=== PATIENT | male | born 1995 | race Two or more races ===

== ENCOUNTER 2018-11-26 10:30 | Emergency (ER) | payer SELFPAY ==
[~2018-11-26] VITALS: Ht 170.2 cm; Wt 68.0 kg
--- NOTE | 2018-11-26 10:40 | Emergency Room Report ---
History of Present Illness General Chief Complaint: Behavioral Complaint Source: EMS, Law Enforcement Present Illness HPI This patient was brought in [place] [employer] and [place] [employer]. The patient was running dangerously through traffic and then was acting bizarre and refusing to calm down. He is acting intoxicated and having hallucinations per EMS and [place] [employer]. The patient himself is yelling and screaming that he is having surveillance and recording and that he knows "what is going on." He is unable to articulate a sensible statement. He continues to yell that he is being recorded at [email or web address] and that the police are taking him to [facility]. He is stating that he has recordings on his phone. EMS report that he had stated he may be withdrawing from heroin. He denied using other drugs. I am unable to obtain any sensible history from this patient. Allergies: Coded Allergies: UNABLE TO ASSESS (Unverified , 11/26/18) Patient History Past Medical History: unable to obtain Past Surgical History: unable to obtain Pertinent Family History: unable to obtain Social History: Reports: drug use Reviewed Nursing Documentation: PMH: Agreed; PSxH: Agreed Nursing Documentation-[facility] Past Medical History: No Stated History Review of Systems All Other Systems: limited Physical Exam Sp02 EP Interpretation: reviewed, normal General Appearance: no apparent distress, alert, GCS 15, non-toxic, other - Aggitated, aggressive, yelling, combatative Head: normocephalic, atraumatic Eyes: bilateral eye PERRL, bilateral eye other - pupils dilated bilaterally, but reactive. ENT: hearing grossly normal, normal pharynx, no angioedema, normal voice Neck: normal inspection, full range of motion Respiratory: chest non-tender, lungs clear, normal breath sounds, no respiratory distress, no retraction, no accessory muscle use, speaking full sentences Cardiovascular #1: no edema, tachycardia Gastrointestinal: normal inspection, normal bowel sounds, non tender, soft, non -distended Rectal: deferred Musculoskeletal: normal inspection, back normal, normal range of motion, non- tender Neurologic: alert, responsive, motor strength/tone normal, sensory intact, speech normal, grossly normal Psychiatric: no suicidal/homicidal ideation, other - Paranoid delusions, combatitive Medical Decision Making Diagnostic Impression: Primary Impression: Polysubstance abuse Additional Impression: Renal insufficiency ER Course This patient arrived screaming and combative. On arrival, I suspected drug intoxication. Also my differential diagnosis included a psychotic psychiatric disorder. Patient was unable to articulate any rational or sensible conversation. Unfortunately, the patient is a danger to himself and others in the current state. For the safety of himself and others the patient is given Haldol, Ativan and Benadryl. This patient presents with polysubstance intoxication. The patient's laboratory workup was pertinent for an elevated creatinine at 1.8. This could be prerenal. The patient was given 2 L of IV fluid. There is no evidence of trauma or injury on physical examination of this patient. The patient was allowed to sober up in the emergency department and was able to ambulate and articulate desire to go home. The patient was clinically sober at the time of discharge and requesting to leave. No acute emergency medical condition is identified. The patient was educated on the dangers of polysubstance abuse. The patient was given a list of the local rehabilitation clinics. The patient was also instructed to follow-up closely about his renal insufficiency. He indicated understanding and intention to do so. The patient was calm, alert and articulate at the time of discharge. Laboratory Tests Test 11/26/18 11:00 White Blood Count 7.8 K/UL (4.8-10.8) Red Blood Count 5.00 M/UL (4.70-6.10) Hemoglobin 15.3 G/DL (14.2-18.0) Hematocrit 44.8 % (42.0-52.0) Mean Corpuscular Volume 90 FL (80-99) Mean Corpuscular Hemoglobin 30.6 PG (27.0-31.0) Mean Corpuscular Hemoglobin Concent 34.1 G/DL (32.0-36.0) Red Cell Distribution Width 12.6 % (11.6-14.8) Platelet Count 291 K/UL (150-450) Mean Platelet Volume 6.1 FL (6.5-10.1) L Neutrophils (%) (Auto) % (45.0-75.0) Lymphocytes (%) (Auto) % (20.0-45.0) Monocytes (%) (Auto) % (1.0-10.0) Eosinophils (%) (Auto) % (0.0-3.0) Basophils (%) (Auto) % (0.0-2.0) Differential Total Cells Counted 100 Neutrophils % (Manual) 87 % (45-75) H Lymphocytes % (Manual) 10 % (20-45) L Monocytes % (Manual) 3 % (1-10) Eosinophils % (Manual) 0 % (0-3) Basophils % (Manual) 0 % (0-2) Band Neutrophils 0 % (0-8) Platelet Estimate Adequate Platelet Morphology Normal Red Blood Cell Morphology Normal Urine Color Pale yellow Urine Appearance Clear Urine pH 6.5 (4.5-8.0) Urine Specific [place] 1.010 (1.005-1.035) Urine Protein 2+ (NEGATIVE) H Urine Glucose (UA) Negative (NEGATIVE) Urine Ketones 3+ (NEGATIVE) H Urine Blood 2+ (NEGATIVE) H Urine Nitrite Positive (NEGATIVE) H Urine Bilirubin Negative (NEGATIVE) Urine Urobilinogen Normal MG/DL (0.0-1.0) Urine Leukocyte Esterase 1+ (NEGATIVE) H Urine RBC 5-10 /HPF (0 - 0) H Urine WBC 2-4 /HPF (0 - 0) Urine Squamous Epithelial Cells Occasional /LPF Urine Bacteria Occasional /HPF (NONE) Sodium Level 144 MMOL/L (136-145) Potassium Level 3.6 MMOL/L (3.5-5.1) Chloride Level 100 MMOL/L (98-107) Carbon Dioxide Level 17 MMOL/L (21-32) L Anion Gap 27 mmol/L (5-15) H Blood Urea Nitrogen 25 mg/dL (7-18) H Creatinine 1.8 MG/DL (0.55-1.30) H Estimate Glomerular Filtration Rate 47.0 mL/min (>60) Glucose Level 172 MG/DL (74-106) H Calcium Level 10.3 MG/DL (8.5-10.1) H Total Bilirubin 0.6 MG/DL (0.2-1.0) Aspartate Amino Transferase (AST) 32 U/L (15-37) Alanine Aminotransferase (ALT) 18 U/L (12-78) Alkaline Phosphatase 69 U/L (46-116) Total Protein 8.7 G/DL (6.4-8.2) H Albumin 5.5 G/DL (3.4-5.0) H Globulin 3.2 g/dL Albumin/Globulin Ratio 1.7 (1.0-2.7) Thyroid Stimulating Hormone (TSH) 0.691 uiU/mL (0.358-3.740) Free Thyroxine 1.19 NG/DL (0.76-1.46) Free Triiodothyronine 2.8 pg/mL (2.3-4.2) Urine Opiates Screen Positive (NEGATIVE) H Urine Barbiturates Screen Negative (NEGATIVE) Phencyclidine (PCP) Screen Negative (NEGATIVE) Urine Amphetamines Screen Positive (NEGATIVE) H Urine Benzodiazepines Screen Positive (NEGATIVE) H Urine Cocaine Screen Positive (NEGATIVE) H Urine Marijuana (THC) Screen Negative (NEGATIVE) Serum Alcohol < 3 mg/dL EKG Diagnostic Results Rate: tachycardiac Rhythm: other - S.Tachy ST Segments: no acute changes Rhythm Strip Diag. Results EP Interpretation: yes Rate: 110's Rhythm: no PVC's, no ectopy, other - S.tach Status: improved Disposition: HOME, SELF-CARE Condition: Improved Patient Instructions: Self-Destructive Behavior Marlyn Guo DO Nov 26, 2018 10:40
--- NOTE | 2018-11-26 10:44 | NUR ---
ED Nurse Note: Pt BIBA from [place] and [place] due to behavioral complaint. Pt was " jumping on cars in a parking lot and running in and out of traffic". Vital signs were not able to be obtained. Pt yells and screams "Help! I just want to leave!", uncooperative with staffs, agressive physically. Will cont to monitor.
[2018-11-26] MEDS ORDERED: Haloperidol 5mg/ml Inj IM ONE (10:45)
[2018-11-26] MEDS ORDERED: DiphenhydrAMINE 50mg/ml Inj IM ONE (10:45)
[2018-11-26] MEDS ORDERED: LORazepam Inj 2mg/ml 1ml IM ONE (10:45)
--- NOTE | 2018-11-26 10:51 | NUR ---
ED Nurse Note: Blood and urine collected and sent to lab.
[2018-11-26] MEDS ORDERED: UNOBMED (10:56)
[2018-11-26 11:17] LABS: APPEARANCE,URINE CLEAR; BILIRUBIN, URINE NEGATIVE (NEGATIVE); GLUCOSE, URINE (UA) NEGATIVE (NEGATIVE); HEMATOCRIT 44.8 % (42.0-52.0); HEMOGLOBIN 15.3 G/DL (14.2-18.0); LEUKOCYTE ESTERASE ,URINE 1+ (NEGATIVE); MEAN CORPUSCULAR VOLUME 90 FL (80-99); PLATELET COUNT 291 K/UL (150-450); RED CELL DISTRIBUTION WIDTH 12.6 % (11.6-14.8); WHITE BLOOD COUNT 7.8 K/UL (4.8-10.8)
[2018-11-26 11:19] LABS: COLOR,URINE PALE YELLOW; KETONES,URINE 3+ (NEGATIVE); NITRITE,URINE POSITIVE (NEGATIVE); PH,URINE 6.5 (4.5-8.0); PROTEIN,URINE 2+ (NEGATIVE); UROBILINOGEN,URINE NORMAL MG/DL (0.0-1.0)
[2018-11-26 11:25] LABS: ANION GAP 27 mmol/L (5-15); BLOOD UREA NITROGEN 25 mg/dL (7-18); CALCIUM 10.3 MG/DL (8.5-10.1); CARBON DIOXIDE 17 MMOL/L (21-32); CHLORIDE 100 MMOL/L (98-107); CREATININE 1.8 MG/DL (0.55-1.30); POTASSIUM 3.6 MMOL/L (3.5-5.1); SODIUM 144 MMOL/L (136-145)
[2018-11-26 11:41] LABS: ALANINE AMINOTRANSFERASE 18 U/L (12-78); ALBUMIN 5.5 G/DL (3.4-5.0); ALBUMIN/GLOBULIN RATIO 1.7 (1.0-2.7); ALKALINE PHOSPHATASE 69 U/L (46-116); ASPARTATE AMINO TRANSFERASE 32 U/L (15-37); BILIRUBIN,TOTAL 0.6 MG/DL (0.2-1.0)
--- NOTE | 2018-11-26 12:03 | NUR ---
ED Nurse Note: Pt is calm and cooperative at this time, communicates with staffs effectively.
[2018-11-26 12:45] VITALS: BP 152/78
[2018-11-26 14:06] VITALS: BP 139/74
[2018-11-26 14:20] VITALS: BP 139/74
--- NOTE | 2018-11-26 14:20 | NUR ---
ER DISCHARGE NOTE: Patient is cleared to be discharged per ERMD, pt is aox4, on room air, with stable vital signs. pt was given dc and prescription instructions, pt was able to verbalize understanding, pt id band and iv site removed without complications. pt is able to ambulate with steady gait. pt took all belongings. Stated he will go back to his girl friend's place on [address] [facility].
--- NOTE | 2018-11-27 15:54 | Cardiology Report ---
APPROVED REPORT EKG Measurement Heart [id number] CO [id number] [id number] Sinus tachycardia Otherwise normal ECG
== END 2018-11-26 14:20 | disposition home or self-care (01) ==
LOC: EDBD 10:30 → EMR 11:45
DX: F19.10 Other psychoactive substance abuse, uncomplicated (principal); N28.9 Disorder of kidney and ureter, unspecified
CPT/HCPCS: 36415; 80053; 80307; 81003; 84439; 84443; 84481; 85007; 85025; 93005; 96360; 96361; 96372; 99284; G0480; J1200; J1630; 80329